=== PATIENT | female | born 1990 | race Asian ===

== ENCOUNTER 2017-09-12 13:29 | Emergency (ER) | payer SELFPAY ==
[~2017-09-12] VITALS: Ht 182 cm; Wt 64.0 kg
[~2017-09-12 13:29] MED LIST: BIRTH CONTROL; NYSTATIN100000 U/G TOP; PHENERGAN 25 TA25 MG PO
[2017-09-12 13:31] VITALS: TEMP 98.5
[2017-09-12 14:06] LABS: INFLUENZA A POSITIVE; INFLUENZA B NEGATIVE
[2017-09-12] MEDS ORDERED: TAMIFLU 75MG75 MG PO (14:15)
[2017-09-12 14:57] VITALS: BP 104/58; PULSE 90
[2017-09-12] MEDS ORDERED: ZOVIRAX400 MG PO (20:50)
== END 2017-09-12 15:02 | disposition home or self-care (01) ==
LOC: COL.ER 13:29
PROVIDERS: Physician Assistant
DX: J10.1 Influenza due to other identified influenza virus with other respiratory manifestations (principal)

== ENCOUNTER 2017-09-12 20:19 | Emergency (ER) | payer SELFPAY ==
[~2017-09-12] VITALS: Ht 182 cm; Wt 64.0 kg
[~2017-09-12 20:19] MED LIST changes: +TAMIFLU 75MG75 MG PO
[2017-09-12 20:22] VITALS: TEMP 98.2
[2017-09-12] MEDS ORDERED: ZOVIRAX400 MG PO (20:50)
[2017-09-12 21:14] VITALS: BP 132/98; PULSE 89
== END 2017-09-12 21:14 | disposition home or self-care (01) ==
LOC: COL.ER 20:19
DX: B00.9 Herpesviral infection, unspecified (principal)

== ENCOUNTER 2018-03-01 00:04 | Emergency (ER) | payer SELFPAY ==
[~2018-03-01] VITALS: Ht 182 cm; Wt 64.0 kg
[~2018-03-01 00:04] MED LIST changes: +ZOVIRAX400 MG PO
[2018-03-01 00:17] VITALS: BP 99/63; PULSE 94
[2018-03-01] MEDS ORDERED: NAPROSYN500 MG PO (00:49)
[2018-03-01] MEDS ORDERED: FLEXERIL 1010 MG/TAB PO (00:50)
[2018-03-01] MEDS ORDERED: MEDROL 4MG DOSPA4 MG PO (00:51)
== END 2018-03-01 01:02 | disposition home or self-care (01) ==
LOC: COL.ER 00:04
DX: M54.32 Sciatica, left side (principal); M54.31 Sciatica, right side

== ENCOUNTER → 2018-04-03 | Outpatient (CLI) | payer OTHER ==
[~2018-04-03] MED LIST changes: +FLEXERIL 1010 MG/TAB PO; +MEDROL 4MG DOSPA4 MG PO; +NAPROSYN500 MG PO
== END ==
LOC: COL.RAD 11:08
DX: M51.37 Other intervertebral disc degeneration, lumbosacral region (principal); M51.27 Other intervertebral disc displacement, lumbosacral region

== ENCOUNTER 2018-06-05 00:20 | Emergency (ER) | payer SELFPAY ==
[~2018-06-05] VITALS: Ht 180.3 cm; Wt 60.5 kg
[2018-06-05 00:24] VITALS: BP 112/72; TEMP 98.1
[2018-06-05] MEDS ORDERED: PRENATAL PO (01:18)
[2018-06-05 01:20] VITALS: PULSE 75
== END 2018-06-05 01:20 | disposition home or self-care (01) ==
LOC: COL.ER 00:20
DX: N64.4 Mastodynia (principal)

== ENCOUNTER 2019-05-12 13:49 | Emergency (ER) | payer SELFPAY ==
[~2019-05-12] VITALS: Ht 182 cm; Wt 65.0 kg
[~2019-05-12 13:49] MED LIST changes: +PRENATAL PO
[2019-05-12 13:54] VITALS: TEMP 97.9
[2019-05-12 15:17] LABS: BASO % 0.3 % (0.0-2.0); EOS # 0.1 (0.0-0.7); GRAN # 4.4 (1.4-6.5); GRAN % 62.8 % (42.2-75.2); HEMATOCRIT 38.1 % (37.0-47.0); HEMOGLOBIN 13.4 g/dl (12.5-16.0); LYMPH # 1.9 (1.2-3.4); MEAN CELL VOLUME 89 fl (80.0-100.0); MEAN CORPUSCULAR HEMOGLOBIN 32 pg (27.0-31.0); MEAN CORPUSCULAR HGB CONC 35 g/dl (33.0-37.0); MEAN PLATELET VOLUME 10.7 fl (7.4-10.4); MONO # 0.6 (0.1-0.6); MONO % 8.6 % (1.7-9.3); PLATELET COUNT 141 K/mm3 (130-400); RED BLOOD COUNT 4.26 M/mm3 (4.10-5.30)
[2019-05-12 15:34] LABS: ALBUMIN 4.1 gm/dL (3.5-5.0); BILIRUBIN,TOTAL 0.5 mg/dL (0.0-1.0); CALCIUM 9.5 mg/dL (8.4-10.2); CREATININE, serum 0.49 (0.52-1.25); POTASSIUM 3.9 mmol/L (3.4-5.0); TOTAL PROTEIN 7.6 gm/dL (6.4-8.2)
[2019-05-12 17:37] VITALS: BP 110/72; PULSE 73
== END 2019-05-12 17:39 | disposition home or self-care (01) ==
LOC: COL.ER 13:49
PROVIDERS: Emergency Medicine
DX: O20.0 Threatened abortion (principal); O36.5910 Maternal care for other known or suspected poor fetal growth, first trimester, not applicable or unspecified; Z3A.01 Less than 8 weeks gestation of pregnancy

== ENCOUNTER 2019-05-16 23:55 | Emergency (ER) | payer SELFPAY ==
[~2019-05-16] VITALS: Ht 165.1 cm; Wt 59.1 kg
[2019-05-17 00:31] VITALS: TEMP 97.7
[2019-05-17 01:03] LABS: BASO % 0.3 % (0.0-2.0); EOS # 0.1 (0.0-0.7); EOS % 0.7 % (0-4.0); GRAN # 6.6 (1.4-6.5); GRAN % 62.4 % (42.2-75.2); HEMATOCRIT 37.9 % (37.0-47.0); LYMPH % 28.2 % (20.0-51.0); MEAN CELL VOLUME 90 fl (80.0-100.0); MEAN CORPUSCULAR HEMOGLOBIN 31 pg (27.0-31.0); MEAN CORPUSCULAR HGB CONC 34 g/dl (33.0-37.0); MEAN PLATELET VOLUME 10.7 fl (7.4-10.4); MONO # 0.9 (0.1-0.6); MONO % 8.1 % (1.7-9.3); PLATELET COUNT 180 K/mm3 (130-400)
[2019-05-17 01:19] LABS: ALBUMIN 4.3 gm/dL (3.5-5.0); BILIRUBIN,TOTAL 0.2 mg/dL (0.0-1.0); CALCIUM 9.5 mg/dL (8.4-10.2); CREATININE, serum 0.68 (0.52-1.25); POTASSIUM 3.5 mmol/L (3.4-5.0); TOTAL PROTEIN 7.7 gm/dL (6.4-8.2)
[2019-05-17 02:44] LABS: BASO % 0.1 % (0.0-2.0); EOS # 0.1 (0.0-0.7); EOS % 0.5 % (0-4.0); GRAN # 10.1 (1.4-6.5); GRAN % 75.5 % (42.2-75.2); HEMOGLOBIN 11.8 g/dl (12.5-16.0); LYMPH # 2.3 (1.2-3.4); MEAN CELL VOLUME 90 fl (80.0-100.0); MEAN CORPUSCULAR HEMOGLOBIN 31 pg (27.0-31.0); MEAN CORPUSCULAR HGB CONC 35 g/dl (33.0-37.0); MEAN PLATELET VOLUME 10.7 fl (7.4-10.4); MONO # 0.9 (0.1-0.6); MONO % 6.6 % (1.7-9.3); PLATELET COUNT 149 K/mm3 (130-400); RED BLOOD COUNT 3.77 M/mm3 (4.10-5.30)
[2019-05-17 02:53] LABS: COLLECTION METHOD CLEAN CATCH
[2019-05-17 03:00] LABS: MUCOUS Present /lpf; PH 7 (5-8); SQUAMOUS EPITHELIAL 0-2 /hpf; URINE APPEARANCE Clear; URINE BACTERIA None Seen /hpf; URINE BILIRUBIN Negative (NEGATIVE); URINE BLOOD 2+ (NEGATIVE); URINE COLOR Yellow; URINE GLUCOSE Negative (NEGATIVE); URINE KETONE Negative (NEGATIVE); URINE LEUKOCYTE ESTERASE Negative (NEGATIVE); URINE NITRATE Negative (NEGATIVE); URINE PROTEIN(semi-quant) Negative (NEGATIVE); URINE RBC >50 /hpf; URINE UROBILINOGEN Negative (NEGATIVE)
[2019-05-17 03:15] VITALS: BP 106/73; PULSE 83
== END 2019-05-17 03:15 | disposition home or self-care (01) ==
LOC: COL.ER 23:55
PROVIDERS: Nurse Practitioner
DX: O03.9 Complete or unspecified spontaneous abortion without complication (principal)
CPT/HCPCS: J3010; J7030

== ENCOUNTER 2020-07-23 23:50 | Inpatient (IN) | payer BC ==
[~2020-07-23] VITALS: Ht 170.2 cm; Wt 84.1 kg
[2020-07-24] VITALS (11 sets, daily range): BP systolic 103–126; BP diastolic 58–86; PULSE 75–94; TEMP 97.6–98.3
[2020-07-24 00:25] LABS: BASO % 0.1 % (0.0-2.0); EOS % 0.2 % (0-4.0); GRAN # 6.8 (1.4-6.5); GRAN % 65.7 % (42.2-75.2); HEMOGLOBIN 12.1 g/dl (12.5-16.0); LYMPH # 2.5 (1.2-3.4); LYMPH % 24.3 % (20.0-51.0); MEAN CELL VOLUME 92 fl (80.0-100.0); MEAN CORPUSCULAR HEMOGLOBIN 32 pg (27.0-31.0); MEAN CORPUSCULAR HGB CONC 35 g/dl (33.0-37.0); MEAN PLATELET VOLUME 11.6 fl (7.4-10.4); MONO % 9.3 % (1.7-9.3); PLATELET COUNT 143 K/mm3 (130-400); REDCELL DISTRIBUTION WIDTH-CV 13.4 % (11.5-14.5)
[2020-07-24 00:27] LABS: HEMATOCRIT 34.9 % (37.0-47.0)
--- NOTE | 2020-07-24 00:45 | NUR ---
Attempt AROM by Dr Irving with ?return of fluid. SVE Complete. PCR.Alejandra assumes care. Pushing with max amount coaching.
--- NOTE | 2020-07-24 00:45 | NUR ---
0040- DIFFICULTY TRACING FHT'S DUE TO MATERNAL MOVEMENT WITH CONTRACTIONS, THIS NURSE ATTEMPTING TO ADJUST US AT THIS TIME. 0043- DR. CASAREZ IN ROOM TO EVALUATE PT, SVE OF COMPLETE, AROM PERFORMED BY DR. CASAREZ. 0045- Rosa MOCTEZUMA RN IN ROOM TO ASSUME CARE OF PT.
--- NOTE | 2020-07-24 01:00 | NUR ---
CLYDE male by Dr Holm
--- NOTE | 2020-07-24 03:30 | NUR ---
0330 UP TO BR WITH ASSIST. NO VOID. PERICARE DONE. TO 215 PER W/C AND EDE WELL.
--- NOTE | 2020-07-24 09:12 | NUR ---
Initial visit; Patient thanked Product Director for offering congratulations and Blessings to family for the of their son and thanking them for choosing [facility].
[2020-07-25 06:50] VITALS: BP 106/69; PULSE 83; TEMP 97.5
[2020-07-25] MEDS ORDERED: MOTRIN 600600 MG/TAB PO (08:21)
[2020-07-25] MEDS ORDERED: PERCOCET 325 MG1 TA2 PO (08:22)
== END 2020-07-25 15:00 | disposition home or self-care (01) | DRG 807 ==
LOC: LDRO 23:50 → OB 07-24 00:12 → LDR 07-24 00:12 → OB 07-24 04:30
PROVIDERS: ADMIT Obstetrics & Gynecology
PROC: 10E0XZZ Delivery of Products of Conception, External Approach (ICD-10-PCS; principal; 2020-07-24)
PROC: 0KQM0ZZ Repair Perineum Muscle, Open Approach (ICD-10-PCS; 2020-07-24)
DX: O77.0 Labor and delivery complicated by meconium in amniotic fluid (principal); Z37.0 Single live birth; O70.1 Second degree perineal laceration during delivery; Z3A.38 38 weeks gestation of pregnancy
CPT/HCPCS: J7120